=== PATIENT | female | born 1985 | race Caucasian/White ===

== ENCOUNTER 2021-03-01 20:14 | Emergency (ER) | payer OTHER ==
[2021-03-01 20:27] VITALS: BP 115/79; PULSE 81; TEMP 98.1; BMI 24.1
[2021-03-01 22:26] LABS: BASO % 0.8 % (0-2.0); EOS % 4.2 % (0-4.5); HEMATOCRIT 39.5 % (32.4-45.2); HEMOGLOBIN 13.3 GM/dL (10.7-15.3); MCH 29.8 pg (25.7-33.7); MCHC 33.7 g/dl (32.0-36.0); MEAN CELL VOLUME 88.4 fl (80-96); MEAN PLT VOLUME 8.5 fl (7.5-11.1); MONO % 12.1 % (3.8-10.2); NEUT % 51.9 % (42.8-82.8); PLATELET COUNT 246 10^3/uL (134-434); RBC 4.47 M/mm3 (3.60-5.2); RDW 13.8 % (11.6-15.6); WHITE BLOOD COUNT 4.1 K/mm3 (4.0-10.0)
[2021-03-01 22:28] LABS: EPI CELLS 15 /uL (0-25.1); HYALINE CASTS 4 /uL (0-3.1); URINE APPEARANCE CLEAR; URINE BILIRUBIN NEGATIVE (NEGATIVE); URINE COLOR YELLOW; URINE GLUCOSE (UA) NEGATIVE (NEGATIVE); URINE KETONE NEGATIVE (NEGATIVE); URINE LEUK ESTERASE 2+ (NEGATIVE); URINE NITRITE NEGATIVE (NEGATIVE); URINE PROTEIN NEGATIVE (NEGATIVE); URINE RBC 6 /uL (0-23.9); URINE WBC 179 /uL (0-25.8)
[2021-03-01] MEDS ORDERED: CEPHALEXIN MONOHYDRATE 500 MG CAPSULE (UD) PO ONE (22:44)
[2021-03-01] MEDS ORDERED: CEPHALEXIN MONOHYDRATE 500 MG CAPSULE (UD) ONE (22:48)
[2021-03-01 22:56] LABS: BLOOD UREA NITROGEN 8.4 mg/dL (7-18); CALCIUM 8.6 mg/dL (8.5-10.1)
[2021-03-01 22:58] LABS: CREATININE 0.5 mg/dL (0.55-1.3)
[2021-03-01 23:00] LABS: BILIRUBIN,TOTAL 0.7 mg/dL (0.2-1)
== END 2021-03-02 00:38 | disposition home or self-care (01) ==
LOC: JER 20:14
DX: O26.851 Spotting complicating pregnancy, first trimester (principal); Z3A.01 Less than 8 weeks gestation of pregnancy
CPT/HCPCS: 36415; 76801-TC; 80053; 81003; 84702; 85025; 86850; 86900; 86901; 87086; 87186; 99284-25

== ENCOUNTER 2021-09-15 08:10 | Inpatient (IN) | payer OTHER ==
[~2021-09-15 08:10] MED LIST: CITRIC ACID/SODIUM CITRATE 30 ML UNIT-DOSE CUP PO ONE; ELECTROLYTE-148 SOLN 1,000 ML IV ONE
[2021-09-15] MEDS ORDERED: ELECTROLYTE-148 SOLN 1,000 ML IV SCH (08:50)
[2021-09-15 10:55] VITALS: BMI 30.6
[2021-09-15] MEDS ORDERED: morphine SULFATE/PF 1 MG/2 ML (2cc Syringe - QUVA) ONE (11:02)
[2021-09-15] MEDS ORDERED: METHYLERGONOVINE MALEATE 0.2 MG/1 ML AMP IM PRN (13:25)
[2021-09-15] MEDS ORDERED: BENZOCAINE 28 GM HEMORRHOIDAL OINTMENT TP PRN (13:25)
[2021-09-15] MEDS ORDERED: ACETAMINOPHEN 325 MG TABLET (FP) PO PRN (13:25)
[2021-09-15] MEDS ORDERED: WITCH HAZEL 50% (TUCKS) 40 PAD/JAR PAD TP PRN (13:25)
[2021-09-15] MEDS ORDERED: ceFAZolin SODIUM 1 GM VIAL ONE (14:05)
[2021-09-15] MEDS ORDERED: OXYTOCIN 10 UNITS/ML VIAL ONE (14:05)
[2021-09-15] MEDS ORDERED: KETOROLAC TROMETHAMINE 30 MG/1 ML VIAL ONE (14:05)
[2021-09-15] MEDS ORDERED: ONDANSETRON 4 MG/2 ML VIAL ONE (14:05)
[2021-09-15 14:24] LABS: CORD BASE EXCESS -3.8 mmol/L (0-2); CORD PCO2 37.8 mmHg (30-78); CORD pH 7.363 (7.14-7.44)
[2021-09-15] MEDS ORDERED: morphine SULFATE/PF 1 MG/2 ML (2cc Syringe - QUVA) IT ONE (14:24)
[2021-09-15] MEDS ORDERED: ONDANSETRON 4 MG/2 ML VIAL IVPUSH PRN ×2 (14:24)
[2021-09-15] MEDS ORDERED: ACETAMINOPHEN 1000 MG/100 ML BAG IVPB ONE (14:26)
[2021-09-15] MEDS: FERROUS SO4 325 MG TABLET (FP) PO SCH (21:43)
[2021-09-15] MEDS: OXYTOCIN 20 UNITS in 0.9% NS 20 UNIT/1,000 ML INFUS.BAG IV SCH (21:44)
[2021-09-16] MEDS ORDERED: IBUPROFEN 800 MG/8 ML IJ IVPB PRN (05:58)
[2021-09-16 07:14] LABS: BASO % 0.2 % (0-2.0); EOS % 0.1 % (0-4.5); HEMATOCRIT 29.2 % (32.4-45.2); HEMOGLOBIN 10.1 GM/dL (10.7-15.3); LYMPH % 5.9 % (8-40); MCH 31.7 pg (25.7-33.7); MCHC 34.7 g/dl (32.0-36.0); MEAN CELL VOLUME 91.2 fl (80-96); MONO % 6.7 % (3.8-10.2); NEUT % 87.1 % (42.8-82.8); PLATELET COUNT 235 10^3/uL (134-434); RDW 13.4 % (11.6-15.6); WHITE BLOOD COUNT 9.4 K/mm3 (4.0-10.0)
[2021-09-16] MEDS: FERROUS SO4 325 MG TABLET (FP) PO SCH ×2 (10:05→21:15)
[2021-09-16] MEDS: PRENATAL VITAMINS W/ FOLIC ACID TABLET (FP) PO SCH (10:05)
[2021-09-16] MEDS: SIMETHICONE 80 MG TAB.CHEW (FP) PO PRN ×3 (12:25→20:26)
[2021-09-16] MEDS: oxyCODONE HCL 5 MG TABLET PO PRN ×2 (12:26→19:43)
[2021-09-16] MEDS: BISACODYL 10 MG SUPP.RECT RC PRN (12:49)
[2021-09-16] MEDS: IBUPROFEN 600 MG TABLET (FP) PO PRN (16:25)
[2021-09-16] MEDS: ELECTROLYTE-148 SOLN 1,000 ML IV SCH ×2 (19:59→20:00)
[2021-09-16] MEDS: OXYTOCIN 20 UNITS in 0.9% NS 20 UNIT/1,000 ML INFUS.BAG IV SCH (20:00)
[2021-09-17] MEDS: oxyCODONE HCL 5 MG TABLET PO PRN ×5 (00:01→21:21)
[2021-09-17] MEDS: SIMETHICONE 80 MG TAB.CHEW (FP) PO PRN ×5 (04:05→21:21)
[2021-09-17] MEDS: PRENATAL VITAMINS W/ FOLIC ACID TABLET (FP) PO SCH (09:31)
[2021-09-17] MEDS: FERROUS SO4 325 MG TABLET (FP) PO SCH ×2 (09:31→21:21)
[2021-09-17] MEDS: BISACODYL 10 MG SUPP.RECT RC PRN (12:19)
[2021-09-17] MEDS: IBUPROFEN 600 MG TABLET (FP) PO PRN (12:20)
[2021-09-18] MEDS: SIMETHICONE 80 MG TAB.CHEW (FP) PO PRN ×4 (00:56→21:00)
[2021-09-18] MEDS: oxyCODONE HCL 5 MG TABLET PO PRN ×2 (00:56→06:30)
[2021-09-18 06:39] LABS: BASO % 0.1 % (0-2.0); EOS % 1.6 % (0-4.5); HEMATOCRIT 27.1 % (32.4-45.2); HEMOGLOBIN 9.3 GM/dL (10.7-15.3); MCH 31.1 pg (25.7-33.7); MCHC 34.3 g/dl (32.0-36.0); MEAN CELL VOLUME 90.7 fl (80-96); MEAN PLT VOLUME 7.6 fl (7.5-11.1); MONO % 8.9 % (3.8-10.2); NEUT % 81.4 % (42.8-82.8); PLATELET COUNT 318 10^3/uL (134-434); RBC 2.99 M/mm3 (3.60-5.2); RDW 13.6 % (11.6-15.6); WHITE BLOOD COUNT 9.1 K/mm3 (4.0-10.0)
[2021-09-18] MEDS: FERROUS SO4 325 MG TABLET (FP) PO SCH ×2 (11:30→21:05)
[2021-09-18] MEDS: BISACODYL 10 MG SUPP.RECT RC PRN (11:30)
[2021-09-18] MEDS: PRENATAL VITAMINS W/ FOLIC ACID TABLET (FP) PO SCH (11:30)
[2021-09-18] MEDS: IBUPROFEN 600 MG TABLET (FP) PO PRN ×2 (15:34→21:00)
[2021-09-19] MEDS: IBUPROFEN 600 MG TABLET (FP) PO PRN ×2 (02:58→07:54)
[2021-09-19] MEDS: SIMETHICONE 80 MG TAB.CHEW (FP) PO PRN (07:55)
[2021-09-19] MEDS: PRENATAL VITAMINS W/ FOLIC ACID TABLET (FP) PO SCH (09:41)
[2021-09-19] MEDS: FERROUS SO4 325 MG TABLET (FP) PO SCH (09:41)
[2021-09-19 11:38] VITALS: BP 104/68; PULSE 90; RESP 18; TEMP 98.8
== END 2021-09-19 12:15 | disposition home or self-care (01) | DRG 540 ==
LOC: JLDR 08:10 → J3W 16:00
PROVIDERS: ADMIT Obstetrics & Gynecology; ATTEND Obstetrics & Gynecology
PROC: 10D00Z1 Extraction of Products of Conception, Low, Open Approach (ICD-10-PCS; principal; 2021-09-16)
DX: O34.211 Maternal care for low transverse scar from previous cesarean delivery (principal); Z3A.39 39 weeks gestation of pregnancy; Z37.0 Single live birth
CPT/HCPCS: 36415; 36600; 80053; 82803; 85025; 85610; 85730; 86780; 86850; 86900; 86901; 88307-TC; C9803-CS; U0003; U0005

== ENCOUNTER 2023-01-27 12:15 | Inpatient (IN) | payer OTHER ==
[2023-01-27 13:31] VITALS: BMI 31.4
[2023-01-27] MEDS ORDERED: CITRIC ACID/SODIUM CITRATE 30 ML UNIT-DOSE CUP PO ONE (13:39)
[2023-01-27] MEDS ORDERED: METHYLERGONOVINE MALEATE 0.2 MG/1 ML AMP IM PRN (13:40)
[2023-01-27] MEDS ORDERED: ELECTROLYTE-148 SOLN 1,000 ML IV SCH (13:45)
[2023-01-27] MEDS ORDERED: LIGASURE IMPACT TP ONE (14:19)
[2023-01-27] MEDS ORDERED: AZITHROMYCIN IVPB 500 MG/250 ML BAG IVPB ONE (15:04)
[2023-01-27 15:53] LABS: CORD BASE EXCESS -1.3 mmol/L (0-2); CORD HCO3 23.6 mmHg (20-29); CORD HCO3 24.5 mmHg (20-29); CORD PCO2 44.9 mmHg (30-78); CORD PCO2 60.2 mmHg (30-78); CORD pH 7.212 (7.14-7.44); CORD pH 7.355 (7.14-7.44)
[2023-01-27] MEDS: OXYTOCIN 20 UNITS in 0.9% NS 20 UNIT/1,000 ML INFUS.BAG IV SCH (16:48)
[2023-01-27] MEDS ORDERED: OXYTOCIN 20 UNITS in 0.9% NS 20 UNIT/1,000 ML INFUS.BAG IV ONE (16:51)
[2023-01-28] MEDS: IBUPROFEN 600 MG TABLET (FP) PO PRN ×4 (00:48→21:25)
[2023-01-28] MEDS: OXYTOCIN 20 UNITS in 0.9% NS 20 UNIT/1,000 ML INFUS.BAG IV SCH (00:48)
[2023-01-28] MEDS: SIMETHICONE 80 MG TAB.CHEW (FP) PO PRN ×4 (00:48→21:25)
[2023-01-28] MEDS ORDERED: oxyCODONE HCL 5 MG TABLET PO PRN ×2 (01:40)
[2023-01-28 07:30] LABS: BASO % 0.3 % (0-2.0); EOS % 0.6 % (0-4.5); HEMATOCRIT 35.5 % (32.4-45.2); HEMOGLOBIN 11.7 GM/dL (10.7-15.3); LYMPH % 9.8 % (8-40); MCH 29.8 pg (25.7-33.7); MEAN CELL VOLUME 90.2 fl (80-96); MEAN PLT VOLUME 7.4 fl (7.5-11.1); MONO % 7.7 % (3.8-10.2); NEUT % 81.6 % (42.8-82.8); PLATELET COUNT 270 10^3/uL (134-434); RBC 3.93 M/mm3 (3.60-5.2); RDW 13.1 % (11.6-15.6); WHITE BLOOD COUNT 11.6 K/mm3 (4.0-10.0)
[2023-01-28] MEDS: ACETAMINOPHEN 325 MG TABLET (FP) PO PRN (09:53)
[2023-01-28] MEDS: BISACODYL 10 MG SUPP.RECT RC PRN (09:54)
[2023-01-29] MEDS: IBUPROFEN 600 MG TABLET (FP) PO PRN ×4 (04:28→20:36)
[2023-01-29] MEDS: SIMETHICONE 80 MG TAB.CHEW (FP) PO PRN (04:28)
[2023-01-29] MEDS: ACETAMINOPHEN 325 MG TABLET (FP) PO PRN (06:03)
[2023-01-29] MEDS: BISACODYL 10 MG SUPP.RECT RC PRN (09:49)
[2023-01-30] MEDS: IBUPROFEN 600 MG TABLET (FP) PO PRN ×3 (01:56→10:45)
[2023-01-30] MEDS: SIMETHICONE 80 MG TAB.CHEW (FP) PO PRN (05:52)
[2023-01-30 08:16] LABS: BASO % 0.4 % (0-2.0); EOS % 5.5 % (0-4.5); HEMATOCRIT 35.7 % (32.4-45.2); HEMOGLOBIN 12.1 GM/dL (10.7-15.3); LYMPH % 18.7 % (8-40); MCH 31.1 pg (25.7-33.7); MEAN CELL VOLUME 91.5 fl (80-96); MEAN PLT VOLUME 7.3 fl (7.5-11.1); MONO % 7.3 % (3.8-10.2); NEUT % 68.1 % (42.8-82.8); PLATELET COUNT 310 10^3/uL (134-434); RDW 13.6 % (11.6-15.6); WHITE BLOOD COUNT 6.4 K/mm3 (4.0-10.0)
[2023-01-30 08:57] VITALS: BP 105/70; PULSE 75; RESP 18; TEMP 98.1
== END 2023-01-30 11:45 | disposition home or self-care (01) | DRG 540 ==
LOC: JLDR 12:15 → J3W 17:40
PROVIDERS: ADMIT Obstetrics & Gynecology; ATTEND Obstetrics & Gynecology
PROC: 10D00Z1 Extraction of Products of Conception, Low, Open Approach (ICD-10-PCS; principal; 2023-01-27)
PROC: 0UB70ZZ Excision of Bilateral Fallopian Tubes, Open Approach (ICD-10-PCS; 2023-01-27)
DX: O34.219 Maternal care for unspecified type scar from previous cesarean delivery (principal); Z37.0 Single live birth; Z30.2 Encounter for sterilization; Z3A.39 39 weeks gestation of pregnancy
CPT/HCPCS: 36415; 36600; 80048; 82803; 85025; 85610; 85730; 86780; 86850; 86900; 86901; 87340; 88305-TC; 88307-TC

== ENCOUNTER 2023-08-05 09:28 | Emergency (ER) | payer OTHER ==
[2023-08-05 09:34] VITALS: BP 118/48; PULSE 78; RESP 18; TEMP 97.8; BMI 22.6
[2023-08-05] MEDS ORDERED: KETOROLAC TROMETHAMINE 30 MG/1 ML VIAL ONE (10:27)
[2023-08-05] MEDS: KETOROLAC TROMETHAMINE 30 MG/1 ML VIAL IM ONE (11:20)
== END 2023-08-05 12:00 | disposition home or self-care (01) ==
LOC: JERFT 09:28
PROC: 3E0233Z Introduction of Anti-inflammatory into Muscle, Percutaneous Approach (ICD-10-PCS; principal; 2023-08-05)
DX: M25.562 Pain in left knee (principal)
CPT/HCPCS: 73562-TC-LT-FY; 99284-25

== ENCOUNTER 2024-12-22 18:17 | Emergency (ER) | payer OTHER ==
[2024-12-22 18:25] VITALS: BP 126/76; PULSE 88; RESP 20; TEMP 98.1; BMI 22.3
[2024-12-22] MEDS ORDERED: ACETAMINOPHEN 325 MG TABLET (FP) ONE (19:20)
[2024-12-22] MEDS ORDERED: LIDOCAINE 5% TOPICAL PATCH ONE (19:27)
[2024-12-22] MEDS: ACETAMINOPHEN 325 MG TABLET (FP) PO ONE (19:30)
[2024-12-22] MEDS: LIDOCAINE 5% TOPICAL PATCH TP ONE (19:30)
[2024-12-22] MEDS ORDERED: IBUPROFEN 200 MG TABLET PO ONE (20:21)
[2024-12-22] MEDS ORDERED: IBUPROFEN 400 MG TABLET (FP) PO ONE (20:59)
[2024-12-23] MEDS ORDERED: LIDOCAINE PATCH REMOVAL MC ONE (07:00)
== END 2024-12-22 20:58 | disposition home or self-care (01) ==
LOC: JER 18:17
DX: S39.011A Strain of muscle, fascia and tendon of abdomen, initial encounter (principal); X50.0XXA Overexertion from strenuous movement or load, initial encounter; Y92.39 Other specified sports and athletic area as the place of occurrence of the external cause; Y93.B3 Activity, free weights
CPT/HCPCS: 99283-25